=== PATIENT | male | born 1985 | race Caucasian/White ===

== ENCOUNTER 2019-09-02 08:19 | Emergency (ER) | payer OTHER ==
[~2019-09-02] VITALS: Ht 185.4 cm; Wt 94.0 kg
[2019-09-02 08:22] VITALS: BP 125/72
--- NOTE | 2019-09-02 08:27 | NUR ---
Pt ambulates with steady gait and balance to room from triage. NADN. No obvious defecits observed.
--- NOTE | 2019-09-02 09:44 | NUR ---
Patient given discharge instructions and they have confirmed that they understand the instructions. Patient ambulatory with steady gait. Pt left with sling, ice pack, d/c paperwork, Rx, and all personal belongings. Pt encouraged to follow up with referral. Pt states verbal understanding.
== END 2019-09-02 09:46 | disposition home or self-care (01) ==
LOC: ED 08:42
DX: G89.11 Acute pain due to trauma (principal); M25.511 Pain in right shoulder; W01.0XXA Fall on same level from slipping, tripping and stumbling without subsequent striking against object, initial encounter; Y93.89 Activity, other specified; Y92.488 Other paved roadways as the place of occurrence of the external cause; Y99.8 Other external cause status
CPT/HCPCS: 99283